=== PATIENT | female | born 1955 | race Caucasian/White ===

== ENCOUNTER 2021-01-26 01:34 | Inpatient (IN) ==
[2021-01-26] MEDS ORDERED: PANTOPRAZOLE INJ 80 MG in SODIUM CHLORIDE 0.9% 100 ML IV ONE (02:04)
[2021-01-26] MEDS ORDERED: THIAMINE INJ 100 MG, FOLIC ACID INJ 1 MG, MAGNESIUM SULF INJ 2 GM, MULTIVITAMIN INJ 10 ... IV ONE (02:04)
[2021-01-26] MEDS ORDERED: ONDANSETRON 4 MG/2 ML VIAL IV ONE (02:04)
[2021-01-26] MEDS ORDERED: MORPHINE 2 MG/1 ML SYRINGE IV STA (02:06)
[2021-01-26 02:28] LABS: Basophils # 0.1 10*3/uL (0.0-0.2); Basophils % 1.2 % (0.0-0.8); Eosinophils # 0.1 10*3/uL (0.0-0.87); Eosinophils % 1.2 % (0.00-10.9); Hematocrit 22.3 VOL% (35.7-47.0); Hemoglobin 8.3 GM/DL (12.0-16.0); Immature Granulocytes % 1.4 %; Immature Granulocytes Absolute 0.12 #; Lymphocytes # 2.4 10*3/uL (1.4-4.0); Lymphocytes % 28.3 % (21.3-54.2); Mean Corpuscular HGB Conc 37.2 GM/DL (32-36); Mean Corpuscular Volume 91.4 FL (87-102); Monocytes % 17.1 % (1.7-12.7); NRBC # 0.02 10*3/uL; Neutrophils % 50.8 % (38.7-73.9); Platelet Count 53 T/CUMM (130-400); Red Blood Count 2.44 MC/CUMM (3.8-5.5); Red Cell Distribution Width 17.2 % (9.3-17.3); White Blood Count 8.4 T/CUMM (4-12)
[2021-01-26 03:02] LABS: Eosinophils 1 % (0-10); Lymphocytes 22 % (20-55); Platelet Estimate Decreased; Segmented Neutrophils 67 % (50-85); Total Cells Counted 100
[2021-01-26 03:03] LABS: Target Cells 2+
[2021-01-26 03:04] LABS: Microcytosis Slight
[2021-01-26] MEDS ORDERED: PANTOPRAZOLE 40 MG VIAL IV ONE (03:04)
[2021-01-26 03:05] LABS: Anisocytosis 1+; Polychromasia Few
[2021-01-26 03:15] LABS: Albumin 2.3 G/DL (3.4-5.0); Calcium 8.5 MG/DL (8.5-10.1); Osmolality,Calculated 259.5 MOS/KG (273-304); Total Protein 8.4 G/DL (6.4-8.2)
[2021-01-26 03:16] LABS: Potassium 5.2 MMOL/L (3.5-5.1)
[2021-01-26] MEDS: PANTOPRAZOLE INJ 200 MG in SODIUM CHLORIDE 0.9% 250 ML IV SCH (04:40)
[2021-01-26] MEDS ORDERED: ONDANSETRON 4 MG/2 ML VIAL IV PRN (05:38)
[2021-01-26] MEDS ORDERED: LORazepam 2 MG/1 ML VIAL IV PRN (05:43)
[2021-01-26] MEDS ORDERED: MORPHINE 2 MG/1 ML SYRINGE IV PRN (06:02)
[2021-01-26] MEDS ORDERED: SODIUM CHLORIDE 0.9% 1,000 ML IV SCH (06:30)
[2021-01-26 08:38] LABS: Basophils # 0.1 10*3/uL (0.0-0.2); Basophils % 1.2 % (0.0-0.8); Eosinophils # 0.1 10*3/uL (0.0-0.87); Eosinophils % 1.5 % (0.00-10.9); Hematocrit 18.8 VOL% (35.7-47.0); Hemoglobin 7.1 GM/DL (12.0-16.0); Lymphocytes # 2.2 10*3/uL (1.4-4.0); Lymphocytes % 32.4 % (21.3-54.2); Mean Corpuscular HGB Conc 37.8 GM/DL (32-36); Mean Corpuscular Volume 90.8 FL (87-102); Mean Platelet Volume 11.3 FL (9.6-12.0); Monocytes % 17.6 % (1.7-12.7); Neutrophils % 46.9 % (38.7-73.9); Platelet Count 54 T/CUMM (130-400); Red Blood Count 2.07 MC/CUMM (3.8-5.5); Red Cell Distribution Width 16.6 % (9.3-17.3); White Blood Count 6.8 T/CUMM (4-12)
[2021-01-26 08:49] LABS: INR 1.5
[2021-01-26 09:04] LABS: Anisocytosis 3+; Band Neutrophils 5 % (0-10); Eosinophils 3 % (0-10); Lymphocytes 32 % (20-55); Macrocytosis 2+; Nucleated Red Blood Cells 1 (0-5); Platelet Estimate Decreased; Segmented Neutrophils 45 % (50-85); Target Cells 2+; Total Cells Counted 100
[2021-01-26 09:05] LABS: Pappenheimer Bodies Few; Polychromasia Slight
[2021-01-26 09:06] LABS: Hypochromasia Slight
[2021-01-26 09:10] LABS: % Iron Saturation 78.3 % (18-50); Ferritin 516.8 ng/mL (8-252)
[2021-01-26] MEDS ORDERED: THIAMINE INJ 100 MG, FOLIC ACID INJ 1 MG, MULTIVITAMIN INJ 10 ML in SODIUM CHLORIDE 0.9... IV SCH (09:41)
[2021-01-26] MEDS ORDERED: SODIUM CHLORIDE 0.9% 1,000 ML IV PRN (10:03)
[2021-01-26 10:04] LABS: Potassium 2.9 MMOL/L (3.5-5.1)
[2021-01-26] MEDS ORDERED: SODIUM CHLORIDE 0.9% 1,000 ML IV ONE (12:00)
[2021-01-26] MEDS ORDERED: MAGNESIUM SULF RIDER 2 GM/50 ML PREMIX IV ONE (13:39)
[2021-01-26] MEDS ORDERED: POTASSIUM CHLORIDE 20 MEQ TABLET PO ONE (13:40)
[2021-01-26 15:09] LABS: INR 1.4; PT Patient Result 15.4 SECS (10.5-12.0)
[2021-01-26 15:40] LABS: Hepatitis B Core IgM Quant 0.08 Index; Hepatitis B Surface Ag Quant < 0.10 Index; Hepatitis B Surface Ag Result Non-Reactive (NonReactive); Hepatitis C Virus Ab Quant 0.15 Index; Hepatitis C Virus Ab Result Non-Reactive (NonReactive)
[2021-01-26] MEDS ORDERED: ACETAMINOPHEN 325 MG TABLET PO PRN (18:46)
[2021-01-27 01:34] LABS: Hematocrit 22.6 VOL% (35.7-47.0); Hemoglobin 8.4 GM/DL (12.0-16.0)
[2021-01-27 06:18] LABS: Basophils # 0.1 10*3/uL (0.0-0.2); Eosinophils # 0.1 10*3/uL (0.0-0.87); Eosinophils % 1.5 % (0.00-10.9); Hematocrit 26.4 VOL% (35.7-47.0); Hemoglobin 9.7 GM/DL (12.0-16.0); Immature Granulocytes % 0.5 %; Immature Granulocytes Absolute 0.03 #; Lymphocytes # 1.5 10*3/uL (1.4-4.0); Lymphocytes % 24.2 % (21.3-54.2); Mean Corpuscular HGB Conc 36.7 GM/DL (32-36); Mean Corpuscular Volume 89.5 FL (87-102); Mean Platelet Volume 10.9 FL (9.6-12.0); Monocytes % 16.5 % (1.7-12.7); NRBC # 0.02 10*3/uL; Neutrophils % 56.3 % (38.7-73.9); Platelet Count 45 T/CUMM (130-400); Red Blood Count 2.95 MC/CUMM (3.8-5.5); Red Cell Distribution Width 15.9 % (9.3-17.3)
[2021-01-27 06:45] LABS: Albumin 2.1 G/DL (3.4-5.0); Bilirubin,Total 4.5 MG/DL (0.20-1.00); Osmolality,Calculated 270.8 MOS/KG (273-304); Potassium 3.1 MMOL/L (3.5-5.1); Total Protein 7.5 G/DL (6.4-8.2)
[2021-01-27 06:48] LABS: Eosinophils 1 % (0-10); Hypochromasia 1+; Lymphocytes 19 % (20-55); Platelet Estimate Decreased; Segmented Neutrophils 64 % (50-85); Target Cells Few; Total Cells Counted 100
[2021-01-27 06:49] LABS: Microcytosis Slight
[2021-01-27] MEDS: PANTOPRAZOLE INJ 200 MG in SODIUM CHLORIDE 0.9% 250 ML IV SCH ×2 (07:21→07:24)
[2021-01-27] MEDS ORDERED: LIDOCAINE 2% 5 ML VIAL ONE (11:47)
[2021-01-27] MEDS ORDERED: propofoL 200 MG/20 ML VIAL IV ONE (11:47)
[2021-01-27] MEDS ORDERED: SODIUM CHLORIDE 0.9% 500 ML IV SCH (12:00)
[2021-01-27] MEDS ORDERED: BISACODYL 5 MG TABLET PO ONE (15:00)
[2021-01-27] MEDS: 1: SODIUM CHLORIDE 0.9% 1,000 ML 2: THIAMINE INJ 100 MG, FOLIC ACID INJ 1 MG, MULTIVITA IV SCH (16:39)
[2021-01-27] MEDS ORDERED: POTASSIUM CHLORIDE 20 MEQ TABLET PO ONE (17:00)
[2021-01-27] MEDS ORDERED: POLYETHYLENE GLYCOL POWDER 255 GM BOTTLE PO ONE (18:00)
[2021-01-28] MEDS: PANTOPRAZOLE INJ 200 MG in SODIUM CHLORIDE 0.9% 250 ML IV SCH (03:18)
[2021-01-28] MEDS: 1: SODIUM CHLORIDE 0.9% 1,000 ML 2: THIAMINE INJ 100 MG, FOLIC ACID INJ 1 MG, MULTIVITA IV SCH ×6 (03:18→23:22)
[2021-01-28 05:21] LABS: Basophils # 0.1 10*3/uL (0.0-0.2); Basophils % 0.7 % (0.0-0.8); Eosinophils # 0.1 10*3/uL (0.0-0.87); Eosinophils % 1.5 % (0.00-10.9); Hematocrit 26.2 VOL% (35.7-47.0); Hemoglobin 9.6 GM/DL (12.0-16.0); Immature Granulocytes % 0.3 %; Immature Granulocytes Absolute 0.02 #; Lymphocytes # 1.4 10*3/uL (1.4-4.0); Lymphocytes % 21.1 % (21.3-54.2); Mean Corpuscular HGB Conc 36.6 GM/DL (32-36); Mean Corpuscular Volume 89.4 FL (87-102); Mean Platelet Volume 10.5 FL (9.6-12.0); Monocytes % 17.4 % (1.7-12.7); Platelet Count 44 T/CUMM (130-400); Red Blood Count 2.93 MC/CUMM (3.8-5.5); Red Cell Distribution Width 16.5 % (9.3-17.3); White Blood Count 6.7 T/CUMM (4-12)
[2021-01-28 05:49] LABS: Bilirubin,Total 4.3 MG/DL (0.20-1.00); Osmolality,Calculated 279.3 MOS/KG (273-304); Potassium 2.7 MMOL/L (3.5-5.1); Total Protein 7.1 G/DL (6.4-8.2)
[2021-01-28 05:53] LABS: Band Neutrophils 1 % (0-10); Eosinophils 1 % (0-10); Lymphocytes 11 % (20-55); Platelet Estimate Decreased; Segmented Neutrophils 75 % (50-85); Total Cells Counted 100
[2021-01-28] MEDS: POTASSIUM CHLORIDE RIDER 10 MEQ/100 ML PREMIX IV SCH ×3 (10:01→13:00)
[2021-01-28] MEDS ORDERED: propofoL 200 MG/20 ML VIAL IV ONE ×2 (12:41→13:00)
[2021-01-28] MEDS ORDERED: LIDOCAINE 2% 5 ML VIAL ONE (12:41)
[2021-01-28] MEDS ORDERED: PHENYLEPHRINE 1 MG/10 ML SYRINGE IV ONE (12:49)
[2021-01-29 01:45] LABS: Basophils # 0.1 10*3/uL (0.0-0.2); Eosinophils # 0.2 10*3/uL (0.0-0.87); Eosinophils % 2.9 % (0.00-10.9); Hematocrit 25.6 VOL% (35.7-47.0); Hemoglobin 9.4 GM/DL (12.0-16.0); Immature Granulocytes % 0.2 %; Immature Granulocytes Absolute 0.01 #; Lymphocytes # 1.4 10*3/uL (1.4-4.0); Lymphocytes % 28.2 % (21.3-54.2); Mean Corpuscular HGB Conc 36.7 GM/DL (32-36); Mean Corpuscular Volume 90.1 FL (87-102); Mean Platelet Volume 10.9 FL (9.6-12.0); Neutrophils % 49.7 % (38.7-73.9); Platelet Count 48 T/CUMM (130-400); Red Blood Count 2.84 MC/CUMM (3.8-5.5); Red Cell Distribution Width 16.8 % (9.3-17.3); White Blood Count 5.1 T/CUMM (4-12)
[2021-01-29 02:05] LABS: Calcium 7.8 MG/DL (8.5-10.1); Osmolality,Calculated 272.7 MOS/KG (273-304); Potassium 2.7 MMOL/L (3.5-5.1)
[2021-01-29] MEDS: MEROPENEM 500 MG in SODIUM CHLORIDE 0.9% 100 ML IV SCH ×2 (02:30→09:53)
[2021-01-29] MEDS: VANCOMYCIN INJ 1,000 MG in SODIUM CHLORIDE 0.9% 250 ML IV SCH ×2 (03:11→17:43)
[2021-01-29] MEDS ORDERED: POTASSIUM CHLORIDE 20 MEQ TABLET PO PRN (03:23)
[2021-01-29 03:29] LABS: Eosinophils 4 % (0-10); Lymphocytes 21 % (20-55); Platelet Estimate Decreased; Segmented Neutrophils 66 % (50-85); Total Cells Counted 100
[2021-01-29 03:33] LABS: Microcytosis Slight; Target Cells 3+
[2021-01-29 03:34] LABS: Anisocytosis 1+; Polychromasia Slight
[2021-01-29 03:51] LABS: Antinuclear Ab, S 0.3 U
[2021-01-29] MEDS: 1: SODIUM CHLORIDE 0.9% 1,000 ML 2: THIAMINE INJ 100 MG, FOLIC ACID INJ 1 MG, MULTIVITA IV SCH (04:00)
[2021-01-29] MEDS: POTASSIUM CHLORIDE RIDER 10 MEQ/100 ML PREMIX IV PRN ×5 (04:52→13:52)
[2021-01-29] MEDS ORDERED: SODIUM CHLORIDE 0.9% 1,000 ML IV SCH (10:30)
[2021-01-29 13:20] LABS: Mitochondrial Antibody (M2) <0.1 U
[2021-01-29] MEDS ORDERED: FUROSEMIDE 40 MG/4 ML VIAL IV ONE (14:00)
[2021-01-29] MEDS ORDERED: MAGNESIUM SULF RIDER 2 GM/50 ML PREMIX IV ONE (15:00)
[2021-01-29] MEDS ORDERED: POTASSIUM CHLORIDE 20 MEQ TABLET PO ONE (15:00)
[2021-01-29] MEDS: CEFEPIME 1,000 MG in SODIUM CHLORIDE 0.9% 100 ML IV SCH ×2 (16:20→21:00)
[2021-01-29] MEDS: FUROSEMIDE 40 MG/4 ML VIAL IV SCH (16:51)
[2021-01-29] MEDS: POTASSIUM CHLORIDE 20 MEQ TABLET PO SCH (21:00)
[2021-01-29] MEDS: PANTOPRAZOLE 40 MG TABLET PO SCH (21:00)
[2021-01-30] MEDS: CEFEPIME 1,000 MG in SODIUM CHLORIDE 0.9% 100 ML IV SCH ×2 (03:47→09:36)
[2021-01-30] MEDS: VANCOMYCIN INJ 1,000 MG in SODIUM CHLORIDE 0.9% 250 ML IV SCH (03:47)
[2021-01-30 06:39] LABS: Basophils # 0.1 10*3/uL (0.0-0.2); Basophils % 1.2 % (0.0-0.8); Eosinophils # 0.3 10*3/uL (0.0-0.87); Eosinophils % 4.4 % (0.00-10.9); Hematocrit 26.5 VOL% (35.7-47.0); Hemoglobin 9.8 GM/DL (12.0-16.0); Immature Granulocytes % 0.7 %; Immature Granulocytes Absolute 0.04 #; Lymphocytes # 2.2 10*3/uL (1.4-4.0); Lymphocytes % 35.7 % (21.3-54.2); Mean Corpuscular Volume 89.5 FL (87-102); Mean Platelet Volume 10.9 FL (9.6-12.0); Monocytes % 19.1 % (1.7-12.7); Neutrophils % 38.9 % (38.7-73.9); Red Blood Count 2.96 MC/CUMM (3.8-5.5); Red Cell Distribution Width 17.2 % (9.3-17.3); White Blood Count 6.1 T/CUMM (4-12)
[2021-01-30 06:42] LABS: Platelet Count 61 T/CUMM (130-400)
[2021-01-30 07:01] LABS: Calcium 8.1 MG/DL (8.5-10.1); Osmolality,Calculated 277.3 MOS/KG (273-304); Potassium 3.7 MMOL/L (3.5-5.1)
[2021-01-30 07:05] LABS: Eosinophils 1 % (0-10); Hypochromasia 1+; Lymphocytes 32 % (20-55); Platelet Estimate Decreased; Segmented Neutrophils 60 % (50-85); Target Cells Few; Total Cells Counted 100
[2021-01-30 07:06] LABS: Microcytosis Slight
[2021-01-30 07:47] VITALS: BP 129/63
[2021-01-30] MEDS ORDERED: FOLIC ACID 1 MG TABLET PO SCH (09:00)
[2021-01-30] MEDS ORDERED: MULTIVITAMIN (CENTRUM) TABLET PO SCH (09:00)
[2021-01-30] MEDS ORDERED: POTASSIUM CHLORIDE 20 MEQ TABLET PO SCH (09:00)
[2021-01-30] MEDS ORDERED: THIAMINE 100 MG TABLET PO SCH (09:00)
[2021-01-30] MEDS: POTASSIUM CHLORIDE 20 MEQ TABLET PO SCH (09:39)
[2021-01-30] MEDS: PANTOPRAZOLE 40 MG TABLET PO SCH (09:39)
[2021-01-30] MEDS: FUROSEMIDE 40 MG/4 ML VIAL IV SCH (09:39)
[2021-01-30] MEDS ORDERED: MAGNESIUM SULF RIDER 2 GM/50 ML PREMIX IV ONE (15:00)
[2021-01-30] MEDS ORDERED: MAGNESIUM OXIDE 400 MG TABLET PO ONE (15:00)
[2021-01-30] MEDS ORDERED: CEFDINIR 300 MG CAPSULE PO SCH (21:00)
== END 2021-01-30 14:41 | disposition home or self-care (01) | DRG 377 ==
LOC: SUATTDRO → N.ED 01:34 → N.EDINP 05:38 → N.5E 08:09
PROVIDERS: ADMIT Internal Medicine; ATTEND Internal Medicine

== ENCOUNTER 2022-01-26 13:15 | Inpatient (IN) ==
[2022-01-26] MEDS ORDERED: FUROSEMIDE 40 MG/4 ML VIAL IV STA ×2 (13:36→14:45)
[2022-01-26 14:12] LABS: Basophils # 0.1 10*3/uL (0.0-0.2); Basophils % 1.4 % (0.0-0.8); Eosinophils # 0.1 10*3/uL (0.0-0.87); Eosinophils % 1.6 % (0.00-10.9); Immature Granulocytes % 0.4 %; Immature Granulocytes Absolute 0.02 #; Lymphocytes # 1.9 10*3/uL (1.4-4.0); Lymphocytes % 38.6 % (21.3-54.2); Mean Corpuscular HGB Conc 34.4 GM/DL (32-36); Mean Corpuscular Volume 98.4 FL (87-102); Mean Platelet Volume 11.2 FL (9.6-12.0); Monocytes # 0.7 10*3/uL (0.11-0.8); Monocytes % 14.2 % (1.7-12.7); Neutrophils % 43.8 % (38.7-73.9); Platelet Count 68 T/CUMM (130-400); Red Blood Count 1.83 MC/CUMM (3.8-5.5); Red Cell Distribution Width 18.6 % (9.3-17.3); White Blood Count 4.9 T/CUMM (4-12)
[2022-01-26 14:14] LABS: Hemoglobin 6.2 GM/DL (12.0-16.0)
[2022-01-26 14:24] LABS: Bacteria,Urine Occasional /HPF (Few); Hyaline Casts,Urine 3 /LPF (0-3); Mucus,Urine Occasional /LPF (Occasional); RBC,Urine 1 /HPF (0-4); Squamous Epithelial Cell,Urine Occasional /HPF (0-10); Urine Appearance Clear (Clear); Urine Color Yellow (Yellow)
[2022-01-26 14:25] LABS: Bilirubin,Urine Small mg/dL (Negative); Blood, Urine Trace mg/dL (Negative); Glucose,Urine (UA) Negative (Negative); Ketones,Urine Negative (Negative); Nitrite,Urine Negative (Negative); Protein,Urine Negative (Negative); Urine Specific Gravity 1.015 (1.001-1.035)
[2022-01-26 14:30] LABS: Albumin 1.6 G/DL (3.4-5.0); Bilirubin,Total 4.8 MG/DL (0.20-1.00); Calcium 8.6 MG/DL (8.5-10.1); Osmolality,Calculated 276.4 MOS/KG (273-304); Potassium 3.4 MMOL/L (3.5-5.1); Total Protein 9.2 G/DL (6.4-8.2)
[2022-01-26] MEDS ORDERED: SODIUM CHLORIDE 0.9% 1,000 ML IV PRN (14:44)
[2022-01-26] MEDS ORDERED: THIAMINE INJ 100 MG, FOLIC ACID INJ 1 MG, MAGNESIUM SULF INJ 2 GM, MULTIVITAMIN INJ 10 ... IV ONE (14:49)
[2022-01-26 15:02] LABS: % Iron Saturation 98.2 % (18-50); Ferritin 831.9 ng/mL (8-252)
[2022-01-26] MEDS ORDERED: GLUCAGON 1 MG VIAL IM PRN (15:38)
[2022-01-26] MEDS ORDERED: hydrALAZINE 20 MG/1 ML VIAL IV PRN (15:38)
[2022-01-26] MEDS ORDERED: ONDANSETRON 4 MG/2 ML VIAL IV PRN (15:38)
[2022-01-26] MEDS ORDERED: MORPHINE 2 MG/1 ML SYRINGE IV PRN (15:38)
[2022-01-26] MEDS ORDERED: DEXTROSE 10% 250 ML BAG IV PRN (15:38)
[2022-01-26] MEDS ORDERED: LORazepam 2 MG/1 ML VIAL IV PRN (15:50)
[2022-01-26] MEDS ORDERED: chlordiazePOXIDE 25 MG CAPSULE PO PRN (15:50)
[2022-01-26] MEDS ORDERED: POTASSIUM CHLORIDE 20 MEQ TABLET PO ONE (15:53)
[2022-01-26 18:19] LABS: Partial Thromboplastin Time 35.7 SECS (23.7-32.9)
[2022-01-26 18:20] LABS: INR 1.9; PT Patient Result 19.8 SECS (10.1-12.1)
[2022-01-26 18:34] LABS: Folate 3.02 NG/ML (5.38-24.0)
[2022-01-26] MEDS: cefTRIAXone 1,000 MG in SODIUM CHLORIDE 0.9% 100 ML IV SCH (19:15)
[2022-01-26] MEDS: ALBUTEROL/IPRATROPIUM 3 ML NEB RESP TX SCH (19:16)
[2022-01-26] MEDS: LACTULOSE 20 GM/30 ML UDCUP PO SCH (20:37)
[2022-01-26] MEDS: AZITHROMYCIN INJ 500 MG in SODIUM CHLORIDE 0.9% 250 ML IV SCH (20:38)
[2022-01-27] MEDS: ALBUTEROL/IPRATROPIUM 3 ML NEB RESP TX SCH ×4 (00:14→20:10)
[2022-01-27 05:08] LABS: Basophils # 0.1 10*3/uL (0.0-0.2); Eosinophils # 0.1 10*3/uL (0.0-0.87); Hematocrit 22.9 VOL% (35.7-47.0); Hemoglobin 8.2 GM/DL (12.0-16.0); Immature Granulocytes % 0.3 %; Immature Granulocytes Absolute 0.02 #; Lymphocytes % 32.8 % (21.3-54.2); Mean Corpuscular HGB Conc 35.8 GM/DL (32-36); Mean Corpuscular Volume 91.2 FL (87-102); Mean Platelet Volume 11.1 FL (9.6-12.0); Monocytes % 16.7 % (1.7-12.7); NRBC # 0.02 10*3/uL; Neutrophils % 48.2 % (38.7-73.9); Platelet Count 50 T/CUMM (130-400); Red Blood Count 2.51 MC/CUMM (3.8-5.5); Red Cell Distribution Width 16.8 % (9.3-17.3); White Blood Count 6.1 T/CUMM (4-12)
[2022-01-27 05:25] LABS: INR 2.9; PT Patient Result 20.9 SECS (10.1-12.1)
[2022-01-27 05:26] LABS: Albumin 1.6 G/DL (3.4-5.0); Calcium 8.7 MG/DL (8.5-10.1); Osmolality,Calculated 277.3 MOS/KG (273-304); Potassium 3.2 MMOL/L (3.5-5.1); Total Protein 8.4 G/DL (6.4-8.2)
[2022-01-27 05:33] LABS: Eosinophils 3 % (0-10); Hypochromia 1+; Lymphocytes 34 % (20-55); Nucleated Red Blood Cells 1 /100 WBC (0-5); Target Cells 1+; Total Cells Counted 100
[2022-01-27 05:34] LABS: Anisocytosis 1+; Macrocytosis 1+; Platelet Estimate Decreased
[2022-01-27] MEDS ORDERED: MAGNESIUM SULF RIDER 4 GM/100 ML PREMIX IV ONE (08:00)
[2022-01-27] MEDS: MULTIVITAMIN (CENTRUM) TABLET PO SCH (09:00)
[2022-01-27] MEDS: FOLIC ACID 1 MG TABLET PO SCH (09:00)
[2022-01-27] MEDS ORDERED: POTASSIUM CHLORIDE 20 MEQ TABLET PO ONE (09:00)
[2022-01-27] MEDS: LACTULOSE 20 GM/30 ML UDCUP PO SCH ×3 (09:00→21:08)
[2022-01-27] MEDS: THIAMINE 100 MG TABLET PO SCH (09:00)
[2022-01-27] MEDS ORDERED: PHYTONADIONE 10 MG/1 ML AMP SUBCUT ONE (13:00)
[2022-01-27] MEDS: SPIRONOLACTONE 25 MG TABLET PO SCH (13:27)
[2022-01-27] MEDS: ALBUMIN 25% 25 GM/100 ML VIAL IV SCH (15:29)
[2022-01-27] MEDS: cefTRIAXone 1,000 MG in SODIUM CHLORIDE 0.9% 100 ML IV SCH (16:32)
[2022-01-27] MEDS: FUROSEMIDE 40 MG/4 ML VIAL IV SCH (16:33)
[2022-01-27] MEDS: AZITHROMYCIN INJ 500 MG in SODIUM CHLORIDE 0.9% 250 ML IV SCH (20:52)
[2022-01-27] MEDS: traMADol 50 MG TABLET PO PRN (21:00)
[2022-01-28] MEDS: ALBUTEROL/IPRATROPIUM 3 ML NEB RESP TX SCH ×5 (00:07→20:13)
[2022-01-28 05:11] LABS: Basophils % 0.7 % (0.0-0.8); Eosinophils # 0.1 10*3/uL (0.0-0.87); Eosinophils % 2.3 % (0.00-10.9); Hematocrit 21.8 VOL% (35.7-47.0); Hemoglobin 7.6 GM/DL (12.0-16.0); Immature Granulocytes % 0.3 %; Immature Granulocytes Absolute 0.02 #; Lymphocytes # 2.4 10*3/uL (1.4-4.0); Lymphocytes % 40.9 % (21.3-54.2); Mean Corpuscular HGB Conc 34.9 GM/DL (32-36); Mean Corpuscular Volume 92.8 FL (87-102); Mean Platelet Volume 11.3 FL (9.6-12.0); Monocytes # 0.9 10*3/uL (0.11-0.8); Monocytes % 15.3 % (1.7-12.7); NRBC # 0.02 10*3/uL; Neutrophils % 40.5 % (38.7-73.9); Platelet Count 50 T/CUMM (130-400); Red Blood Count 2.35 MC/CUMM (3.8-5.5); Red Cell Distribution Width 18.1 % (9.3-17.3); White Blood Count 5.7 T/CUMM (4-12)
[2022-01-28 05:23] LABS: Calcium 8.4 MG/DL (8.5-10.1); Osmolality,Calculated 279.1 MOS/KG (273-304); Potassium 3.2 MMOL/L (3.5-5.1)
[2022-01-28 05:39] LABS: Eosinophils 9 % (0-10); Lymphocytes 29 % (20-55); Nucleated Red Blood Cells 1 /100 WBC (0-5); Platelet Estimate Decreased; Total Cells Counted 100
[2022-01-28 05:40] LABS: Hypochromia Slight; Macrocytosis Slight; Target Cells Few
[2022-01-28 07:22] LABS: PT Patient Result 22.9 SECS (10.1-12.1)
[2022-01-28 07:23] LABS: INR 2.2
[2022-01-28] MEDS ORDERED: LACTATED RINGERS 1,000 ML IV SCH (08:00)
[2022-01-28] MEDS: FUROSEMIDE 40 MG/4 ML VIAL IV SCH ×2 (08:21→16:25)
[2022-01-28] MEDS: ALBUMIN 25% 25 GM/100 ML VIAL IV SCH (08:21)
[2022-01-28] MEDS ORDERED: POTASSIUM CHLORIDE 20 MEQ TABLET PO ONE (09:30)
[2022-01-28] MEDS ORDERED: MAGNESIUM SULF RIDER 2 GM/50 ML PREMIX IV ONE (12:00)
[2022-01-28] MEDS ORDERED: PHYTONADIONE 10 MG/1 ML AMP SUBCUT ONE (12:30)
[2022-01-28] MEDS: SPIRONOLACTONE 25 MG TABLET PO SCH (13:51)
[2022-01-28] MEDS: FOLIC ACID 1 MG TABLET PO SCH (13:51)
[2022-01-28] MEDS: PANTOPRAZOLE 40 MG TABLET PO SCH (13:51)
[2022-01-28] MEDS: MULTIVITAMIN (CENTRUM) TABLET PO SCH (13:51)
[2022-01-28] MEDS: THIAMINE 100 MG TABLET PO SCH (13:51)
[2022-01-28] MEDS: LACTULOSE 20 GM/30 ML UDCUP PO SCH ×2 (13:52→20:54)
[2022-01-28] MEDS: traMADol 50 MG TABLET PO PRN (13:52)
[2022-01-28] MEDS: cefTRIAXone 1,000 MG in SODIUM CHLORIDE 0.9% 100 ML IV SCH (16:25)
[2022-01-28] MEDS: AZITHROMYCIN INJ 500 MG in SODIUM CHLORIDE 0.9% 250 ML IV SCH (20:54)
[2022-01-29] MEDS: ALBUTEROL/IPRATROPIUM 3 ML NEB RESP TX SCH ×2 (01:25→07:05)
[2022-01-29 06:13] LABS: Basophils # 0.1 10*3/uL (0.0-0.2); Basophils % 1.1 % (0.0-0.8); Eosinophils # 0.2 10*3/uL (0.0-0.87); Hematocrit 23.4 VOL% (35.7-47.0); Immature Granulocytes % 0.4 %; Immature Granulocytes Absolute 0.02 #; Lymphocytes % 36.1 % (21.3-54.2); Mean Corpuscular HGB Conc 34.2 GM/DL (32-36); Mean Corpuscular Volume 95.1 FL (87-102); Mean Platelet Volume 9.5 FL (9.6-12.0); Monocytes # 0.9 10*3/uL (0.11-0.8); Monocytes % 16.5 % (1.7-12.7); NRBC # 0.02 10*3/uL; Neutrophils % 42.9 % (38.7-73.9); Platelet Count 51 T/CUMM (130-400); Red Blood Count 2.46 MC/CUMM (3.8-5.5); Red Cell Distribution Width 18.7 % (9.3-17.3); White Blood Count 5.6 T/CUMM (4-12)
[2022-01-29 06:44] LABS: Eosinophils 8 % (0-10); Hypochromia 1+; Lymphocytes 25 % (20-55); Microcytosis 1+; Platelet Estimate Decreased; Total Cells Counted 100
[2022-01-29 06:51] LABS: INR 2.2; PT Patient Result 22.4 SECS (10.1-12.1)
[2022-01-29 06:53] LABS: Calcium 8.9 MG/DL (8.5-10.1); Osmolality,Calculated 277.3 MOS/KG (273-304); Potassium 3.4 MMOL/L (3.5-5.1)
[2022-01-29] MEDS: FOLIC ACID 1 MG TABLET PO SCH (08:28)
[2022-01-29] MEDS: LACTULOSE 20 GM/30 ML UDCUP PO SCH ×2 (08:28→20:58)
[2022-01-29] MEDS: FUROSEMIDE 40 MG/4 ML VIAL IV SCH ×2 (08:28→15:06)
[2022-01-29] MEDS: MULTIVITAMIN (CENTRUM) TABLET PO SCH (08:29)
[2022-01-29] MEDS: PANTOPRAZOLE 40 MG TABLET PO SCH (08:29)
[2022-01-29] MEDS: THIAMINE 100 MG TABLET PO SCH (08:29)
[2022-01-29] MEDS: SPIRONOLACTONE 25 MG TABLET PO SCH (08:29)
[2022-01-29] MEDS ORDERED: POTASSIUM CHLORIDE 20 MEQ TABLET PO ONE (08:30)
[2022-01-29] MEDS ORDERED: SODIUM CHLORIDE 0.9% 1,000 ML IV PRN (09:19)
[2022-01-29] MEDS ORDERED: MAGNESIUM SULF RIDER 2 GM/50 ML PREMIX IV ONE (09:30)
[2022-01-29] MEDS: ALBUMIN 25% 25 GM/100 ML VIAL IV SCH (15:05)
[2022-01-29] MEDS: cefTRIAXone 1,000 MG in SODIUM CHLORIDE 0.9% 100 ML IV SCH (15:08)
[2022-01-29 17:12] LABS: INR 1.6
[2022-01-29] MEDS: AZITHROMYCIN INJ 500 MG in SODIUM CHLORIDE 0.9% 250 ML IV SCH (20:56)
[2022-01-30 06:02] LABS: Basophils % 0.9 % (0.0-0.8); Eosinophils # 0.1 10*3/uL (0.0-0.87); Eosinophils % 2.9 % (0.00-10.9); Hematocrit 20.2 VOL% (35.7-47.0); Hemoglobin 6.9 GM/DL (12.0-16.0); Immature Granulocytes % 0.4 %; Immature Granulocytes Absolute 0.02 #; Lymphocytes # 1.8 10*3/uL (1.4-4.0); Lymphocytes % 39.4 % (21.3-54.2); Mean Corpuscular HGB Conc 34.2 GM/DL (32-36); Mean Corpuscular Volume 97.1 FL (87-102); Mean Platelet Volume 11.4 FL (9.6-12.0); Monocytes # 0.9 10*3/uL (0.11-0.8); Neutrophils % 37.4 % (38.7-73.9); Platelet Count 47 T/CUMM (130-400); Red Blood Count 2.08 MC/CUMM (3.8-5.5); Red Cell Distribution Width 18.9 % (9.3-17.3); White Blood Count 4.5 T/CUMM (4-12)
[2022-01-30 06:12] LABS: INR 1.7; PT Patient Result 18.2 SECS (10.1-12.1)
[2022-01-30 06:20] LABS: Bilirubin,Total 4.7 MG/DL (0.20-1.00); Calcium 8.9 MG/DL (8.5-10.1); Osmolality,Calculated 274.5 MOS/KG (273-304); Potassium 2.9 MMOL/L (3.5-5.1); Total Protein 7.3 G/DL (6.4-8.2)
[2022-01-30 06:28] LABS: Eosinophils 2 % (0-10); Lymphocytes 38 % (20-55); Total Cells Counted 100
[2022-01-30 06:29] LABS: Hypochromia 1+; Macrocytosis 1+; Target Cells Few
[2022-01-30 06:30] LABS: Anisocytosis 1+; Platelet Estimate Decreased; Polychromasia Slight
[2022-01-30] MEDS ORDERED: POTASSIUM CHLORIDE 20 MEQ TABLET PO ONE (08:30)
[2022-01-30] MEDS: FUROSEMIDE 40 MG/4 ML VIAL IV SCH ×2 (08:54→19:14)
[2022-01-30] MEDS ORDERED: SODIUM CHLORIDE 0.9% 1,000 ML IV PRN (09:13)
[2022-01-30] MEDS ORDERED: MAGNESIUM SULF RIDER 4 GM/100 ML PREMIX IV PRN (09:19)
[2022-01-30] MEDS ORDERED: MAGNESIUM SULF RIDER 2 GM/50 ML PREMIX IV PRN (09:19)
[2022-01-30] MEDS ORDERED: FUROSEMIDE 20 MG/2 ML VIAL IV ONE (09:30)
[2022-01-30] MEDS: LACTULOSE 20 GM/30 ML UDCUP PO SCH ×2 (19:04→21:32)
[2022-01-30] MEDS: MULTIVITAMIN (CENTRUM) TABLET PO SCH (19:04)
[2022-01-30] MEDS: PANTOPRAZOLE 40 MG TABLET PO SCH (19:04)
[2022-01-30] MEDS: SPIRONOLACTONE 25 MG TABLET PO SCH (19:04)
[2022-01-30] MEDS: FOLIC ACID 1 MG TABLET PO SCH (19:04)
[2022-01-30] MEDS: THIAMINE 100 MG TABLET PO SCH (19:05)
[2022-01-30] MEDS: AZITHROMYCIN INJ 500 MG in SODIUM CHLORIDE 0.9% 250 ML IV SCH (21:32)
[2022-01-30] MEDS: cefTRIAXone 1,000 MG in SODIUM CHLORIDE 0.9% 100 ML IV SCH (21:50)
[2022-01-30] MEDS: ALBUMIN 25% 25 GM/100 ML VIAL IV SCH (22:10)
[2022-01-30 23:47] LABS: Hematocrit 30.1 VOL% (35.7-47.0)
[2022-01-30 23:49] LABS: Hemoglobin 10.5 GM/DL (12.0-16.0)
[2022-01-31 05:16] LABS: Basophils # 0.1 10*3/uL (0.0-0.2); Basophils % 1.3 % (0.0-0.8); Eosinophils # 0.2 10*3/uL (0.0-0.87); Eosinophils % 3.3 % (0.00-10.9); Hemoglobin 10.1 GM/DL (12.0-16.0); Immature Granulocytes % 0.2 %; Immature Granulocytes Absolute 0.01 #; Lymphocytes % 37.7 % (21.3-54.2); Mean Corpuscular HGB Conc 33.7 GM/DL (32-36); Mean Corpuscular Volume 91.7 FL (87-102); Mean Platelet Volume 10.2 FL (9.6-12.0); Monocytes # 1.1 10*3/uL (0.11-0.8); Neutrophils % 36.5 % (38.7-73.9); Red Blood Count 3.27 MC/CUMM (3.8-5.5); Red Cell Distribution Width 20.6 % (9.3-17.3); White Blood Count 5.2 T/CUMM (4-12)
[2022-01-31 05:18] LABS: Platelet Count 47 T/CUMM (130-400)
[2022-01-31 05:29] LABS: Osmolality,Calculated 272.7 MOS/KG (273-304)
[2022-01-31 05:32] LABS: INR 1.9; PT Patient Result 19.6 SECS (10.1-12.1)
[2022-01-31 07:34] LABS: Eosinophils 4 % (0-10); Hypochromia Slight; Lymphocytes 32 % (20-55); Nucleated Red Blood Cells 1 /100 WBC (0-5); Platelet Estimate Decreased; Total Cells Counted 100
[2022-01-31 07:35] LABS: Macrocytosis Slight; Target Cells Few
[2022-01-31] MEDS ORDERED: POTASSIUM CHLORIDE 20 MEQ TABLET PO ONE (07:40)
[2022-01-31] MEDS: FUROSEMIDE 40 MG/4 ML VIAL IV SCH ×2 (08:55→17:01)
[2022-01-31] MEDS: LACTULOSE 20 GM/30 ML UDCUP PO SCH ×2 (08:55→20:14)
[2022-01-31] MEDS: THIAMINE 100 MG TABLET PO SCH (08:56)
[2022-01-31] MEDS: MULTIVITAMIN (CENTRUM) TABLET PO SCH (08:56)
[2022-01-31] MEDS: FOLIC ACID 1 MG TABLET PO SCH (08:56)
[2022-01-31] MEDS: SPIRONOLACTONE 25 MG TABLET PO SCH (08:56)
[2022-01-31] MEDS: PANTOPRAZOLE 40 MG TABLET PO SCH (08:56)
[2022-01-31] MEDS: POTASSIUM CHLORIDE RIDER 10 MEQ/100 ML PREMIX IV PRN ×5 (12:28→22:59)
[2022-01-31] MEDS ORDERED: LACTULOSE 20 GM/30 ML UDCUP PO ONE (13:14)
[2022-01-31] MEDS: cefTRIAXone 1,000 MG in SODIUM CHLORIDE 0.9% 100 ML IV SCH (17:01)
[2022-02-01 05:22] LABS: Basophils # 0.1 10*3/uL (0.0-0.2); Basophils % 1.2 % (0.0-0.8); Eosinophils # 0.2 10*3/uL (0.0-0.87); Eosinophils % 3.5 % (0.00-10.9); Hematocrit 28.8 VOL% (35.7-47.0); Hemoglobin 9.6 GM/DL (12.0-16.0); Immature Granulocytes % 0.2 %; Immature Granulocytes Absolute 0.01 #; Lymphocytes # 2.3 10*3/uL (1.4-4.0); Lymphocytes % 45.3 % (21.3-54.2); Mean Corpuscular HGB Conc 33.3 GM/DL (32-36); Mean Corpuscular Volume 91.4 FL (87-102); Mean Platelet Volume 9.9 FL (9.6-12.0); Monocytes # 1.2 10*3/uL (0.11-0.8); Monocytes % 23.6 % (1.7-12.7); Neutrophils % 26.2 % (38.7-73.9); Red Blood Count 3.15 MC/CUMM (3.8-5.5); Red Cell Distribution Width 20.4 % (9.3-17.3); White Blood Count 5.2 T/CUMM (4-12)
[2022-02-01 05:29] LABS: Platelet Count 50 T/CUMM (130-400)
[2022-02-01 05:33] LABS: INR 1.8; PT Patient Result 18.8 SECS (10.1-12.1)
[2022-02-01 05:44] LABS: Calcium 8.8 MG/DL (8.5-10.1); Osmolality,Calculated 278.3 MOS/KG (273-304); Potassium 3.5 MMOL/L (3.5-5.1)
[2022-02-01 07:36] LABS: Eosinophils 6 % (0-10); Lymphocytes 39 % (20-55); Total Cells Counted 100
[2022-02-01 07:37] LABS: Hypochromia Slight; Macrocytosis Slight; Platelet Estimate Decreased
[2022-02-01] MEDS: MULTIVITAMIN (CENTRUM) TABLET PO SCH (08:43)
[2022-02-01] MEDS: THIAMINE 100 MG TABLET PO SCH (08:43)
[2022-02-01] MEDS: FUROSEMIDE 40 MG/4 ML VIAL IV SCH ×2 (08:43→16:00)
[2022-02-01] MEDS: PANTOPRAZOLE 40 MG TABLET PO SCH (08:43)
[2022-02-01] MEDS: FOLIC ACID 1 MG TABLET PO SCH (08:43)
[2022-02-01] MEDS: SPIRONOLACTONE 25 MG TABLET PO SCH (08:43)
[2022-02-01] MEDS: LACTULOSE 20 GM/30 ML UDCUP PO SCH ×2 (08:43→21:36)
[2022-02-01] MEDS ORDERED: SODIUM CHLORIDE 0.9% 1,000 ML IV PRN (09:59)
[2022-02-01] MEDS ORDERED: LACTULOSE 20 GM/30 ML UDCUP PO ONE (13:00)
[2022-02-01] MEDS: cefTRIAXone 1,000 MG in SODIUM CHLORIDE 0.9% 100 ML IV SCH (16:00)
[2022-02-02 06:12] LABS: Basophils # 0.1 10*3/uL (0.0-0.2); Eosinophils # 0.2 10*3/uL (0.0-0.87); Eosinophils % 3.7 % (0.00-10.9); Hematocrit 28.9 VOL% (35.7-47.0); Hemoglobin 9.6 GM/DL (12.0-16.0); Immature Granulocytes % 0.2 %; Immature Granulocytes Absolute 0.01 #; Lymphocytes # 1.9 10*3/uL (1.4-4.0); Lymphocytes % 46.3 % (21.3-54.2); Mean Corpuscular HGB Conc 33.2 GM/DL (32-36); Mean Corpuscular Volume 92.9 FL (87-102); Mean Platelet Volume 10.8 FL (9.6-12.0); Monocytes # 0.9 10*3/uL (0.11-0.8); Monocytes % 22.2 % (1.7-12.7); Neutrophils % 25.6 % (38.7-73.9); Red Blood Count 3.11 MC/CUMM (3.8-5.5); White Blood Count 4.1 T/CUMM (4-12)
[2022-02-02 06:15] LABS: Platelet Count 52 T/CUMM (130-400)
[2022-02-02 06:28] LABS: Calcium 9.2 MG/DL (8.5-10.1); Osmolality,Calculated 276.4 MOS/KG (273-304); Potassium 2.9 MMOL/L (3.5-5.1)
[2022-02-02 06:39] LABS: Eosinophils 10 % (0-10); Hypochromia Slight; Lymphocytes 45 % (20-55); Macrocytosis 1+; Target Cells Few; Total Cells Counted 100
[2022-02-02 06:40] LABS: Platelet Estimate Decreased; Polychromasia Slight
[2022-02-02 07:57] LABS: INR 1.4; PT Patient Result 15.6 SECS (10.1-12.1)
[2022-02-02] MEDS: FUROSEMIDE 40 MG/4 ML VIAL IV SCH ×2 (09:23→17:22)
[2022-02-02] MEDS: MULTIVITAMIN (CENTRUM) TABLET PO SCH (09:23)
[2022-02-02] MEDS: PANTOPRAZOLE 40 MG TABLET PO SCH (09:23)
[2022-02-02] MEDS: FOLIC ACID 1 MG TABLET PO SCH (09:23)
[2022-02-02] MEDS: THIAMINE 100 MG TABLET PO SCH (09:24)
[2022-02-02] MEDS: LACTULOSE 20 GM/30 ML UDCUP PO SCH ×3 (09:24→21:11)
[2022-02-02] MEDS: SPIRONOLACTONE 25 MG TABLET PO SCH (09:24)
[2022-02-02] MEDS: cefTRIAXone 1,000 MG in SODIUM CHLORIDE 0.9% 100 ML IV SCH (17:22)
[2022-02-02] MEDS: POTASSIUM CHLORIDE RIDER 10 MEQ/100 ML PREMIX IV PRN ×4 (18:51→23:07)
[2022-02-03] MEDS: POTASSIUM CHLORIDE RIDER 10 MEQ/100 ML PREMIX IV PRN (00:13)
[2022-02-03 02:16] LABS: RBC,Peritoneal Fluid 421 T/CUMM
[2022-02-03 02:21] LABS: Neutrophils,Peritoneal Fluid 11 %
[2022-02-03 06:38] LABS: Basophils # 0.1 10*3/uL (0.0-0.2); Basophils % 1.8 % (0.0-0.8); Eosinophils # 0.2 10*3/uL (0.0-0.87); Eosinophils % 3.9 % (0.00-10.9); Hematocrit 28.6 VOL% (35.7-47.0); Hemoglobin 9.8 GM/DL (12.0-16.0); Immature Granulocytes % 0.2 %; Immature Granulocytes Absolute 0.01 #; Lymphocytes # 1.8 10*3/uL (1.4-4.0); Lymphocytes % 41.1 % (21.3-54.2); Mean Corpuscular HGB Conc 34.3 GM/DL (32-36); Mean Platelet Volume 11.7 FL (9.6-12.0); Monocytes % 23.1 % (1.7-12.7); Neutrophils % 29.9 % (38.7-73.9); Platelet Count 54 T/CUMM (130-400); Red Blood Count 3.11 MC/CUMM (3.8-5.5); Red Cell Distribution Width 19.5 % (9.3-17.3); White Blood Count 4.4 T/CUMM (4-12)
[2022-02-03 06:48] LABS: INR 1.6
[2022-02-03 06:57] LABS: Band Neutrophils 1 % (0-10); Eosinophils 7 % (0-10); Lymphocytes 39 % (20-55); Total Cells Counted 100
[2022-02-03 06:58] LABS: Microcytosis 1+; Target Cells Few
[2022-02-03 06:59] LABS: Hypochromia 1+; Platelet Estimate Decreased
[2022-02-03 07:02] LABS: Albumin 2.3 G/DL (3.4-5.0); Bilirubin,Total 3.5 MG/DL (0.20-1.00); Calcium 9.3 MG/DL (8.5-10.1); Osmolality,Calculated 273.7 MOS/KG (273-304); Potassium 3.2 MMOL/L (3.5-5.1); Total Protein 8.3 G/DL (6.4-8.2)
[2022-02-03] MEDS ORDERED: LACTATED RINGERS 1,000 ML IV SCH (08:00)
[2022-02-03] MEDS: SPIRONOLACTONE 25 MG TABLET PO SCH (08:13)
[2022-02-03] MEDS: PANTOPRAZOLE 40 MG TABLET PO SCH (08:13)
[2022-02-03] MEDS: FOLIC ACID 1 MG TABLET PO SCH (08:13)
[2022-02-03] MEDS: LACTULOSE 20 GM/30 ML UDCUP PO SCH (08:13)
[2022-02-03] MEDS: MULTIVITAMIN (CENTRUM) TABLET PO SCH (08:13)
[2022-02-03] MEDS: THIAMINE 100 MG TABLET PO SCH (08:14)
[2022-02-03] MEDS: FUROSEMIDE 40 MG/4 ML VIAL IV SCH (08:19)
[2022-02-03] MEDS ORDERED: FAMOTIDINE 20 MG/2 ML VIAL IV STA (08:51)
[2022-02-03] MEDS ORDERED: LIDOCAINE 2% 5 ML VIAL ONE (09:51)
[2022-02-03] MEDS ORDERED: propofoL 200 MG/20 ML VIAL IV ONE (09:51)
[2022-02-03] MEDS ORDERED: ETOMIDATE 20 MG/10 ML VIAL IV ONE (09:51)
[2022-02-03 11:38] VITALS: BP 147/69
[2022-02-03] MEDS ORDERED: POTASSIUM CHLORIDE 20 MEQ TABLET PO ONE (12:00)
== END 2022-02-03 14:51 | disposition home health service (06) | DRG 433 ==
LOC: EDBD → EDUNIT# → N.ED 13:15 → SUATTDRO 15:38 → N.EDINP 15:38 → N.3E 17:26
PROVIDERS: ADMIT Hospitalist; ATTEND Internal Medicine

== ENCOUNTER 2022-04-04 09:51 | Inpatient (IN) ==
[2022-04-04] MEDS ORDERED: methylPREDNISolone SOD SUC 125 MG/2 ML VIAL IV STA (10:23)
[2022-04-04] MEDS ORDERED: ALBUTEROL/IPRATROPIUM 3 ML NEB RESP TX STA (10:23)
[2022-04-04] MEDS ORDERED: ONDANSETRON 4 MG/2 ML VIAL IV STA (10:23)
[2022-04-04 10:45] LABS: Basophils # 0.1 10*3/uL (0.0-0.2); Basophils % 0.6 % (0.0-0.8); Eosinophils # 1.1 10*3/uL (0.0-0.87); Eosinophils % 10.1 % (0.00-10.9); Hematocrit 29.2 VOL% (35.7-47.0); Hemoglobin 9.9 GM/DL (12.0-16.0); Immature Granulocytes % 0.6 %; Immature Granulocytes Absolute 0.06 #; Lymphocytes # 1.7 10*3/uL (1.4-4.0); Lymphocytes % 15.5 % (21.3-54.2); Mean Corpuscular HGB Conc 33.9 GM/DL (32-36); Mean Corpuscular Volume 91.3 FL (87-102); Mean Platelet Volume 10.3 FL (9.6-12.0); Monocytes # 1.8 10*3/uL (0.11-0.8); Monocytes % 16.7 % (1.7-12.7); Neutrophils % 56.5 % (38.7-73.9); Platelet Count 106 T/CUMM (130-400); Red Cell Distribution Width 23.4 % (9.3-17.3); White Blood Count 10.8 T/CUMM (4-12)
[2022-04-04 10:50] LABS: INR 1.6; PT Patient Result 17.5 SECS (10.1-12.1)
[2022-04-04 10:59] LABS: Albumin 2.4 G/DL (3.4-5.0); Bilirubin,Total 6.2 MG/DL (0.20-1.00); Calcium 8.6 MG/DL (8.5-10.1); Osmolality,Calculated 280.3 MOS/KG (273-304); Potassium 3.1 MMOL/L (3.5-5.1); Total Protein 8.6 G/DL (6.4-8.2)
[2022-04-04 11:11] LABS: Band Neutrophils 2 % (0-10); Eosinophils 15 % (0-10); Lymphocytes 16 % (20-55); Total Cells Counted 100
[2022-04-04 11:12] LABS: Anisocytosis Slight; Macrocytosis Slight; Platelet Estimate Adequate
[2022-04-04 11:48] LABS: ABG Base Excess -0.2 MMOL/L (-2.5-2.5); ABG HCO3 24.2 MMOL/L (20-26); ABG Oxygen Saturation 97.4 % (95-100); ABG PCO2 34.9 MM HG (35-48); ABG PH 7.438 (7.35-7.45); ABG PO2 88.3 MM HG (80-95)
[2022-04-04] MEDS ORDERED: ALBUTEROL/IPRATROPIUM 3 ML NEB RESP TX PRN (13:29)
[2022-04-04] MEDS ORDERED: LACTULOSE 20 GM/30 ML UDCUP PO PRN (13:29)
[2022-04-04] MEDS ORDERED: hydrALAZINE 20 MG/1 ML VIAL IV PRN (13:29)
[2022-04-04] MEDS ORDERED: ONDANSETRON 4 MG/2 ML VIAL IV PRN (13:29)
[2022-04-04] MEDS ORDERED: hydrOXYzine HCL 2 MG/ML 30 ML/BOTTLE PO PRN (13:33)
[2022-04-04] MEDS ORDERED: LORazepam 2 MG/1 ML VIAL IV PRN (13:35)
[2022-04-04 14:01] LABS: Thyroid Stimulating Hormone 2.53 uIU/ml (0.358-3.74)
[2022-04-04] MEDS: MEROPENEM 500 MG in SODIUM CHLORIDE 0.9% 100 ML IV SCH ×2 (14:14→21:05)
[2022-04-04] MEDS ORDERED: MAGNESIUM SULF RIDER 2 GM/50 ML PREMIX IV PRN (14:18)
[2022-04-04] MEDS ORDERED: MAGNESIUM SULF RIDER 4 GM/100 ML PREMIX IV PRN (14:18)
[2022-04-04] MEDS ORDERED: LACTULOSE 20 GM PO SCH (15:00)
[2022-04-04] MEDS: FUROSEMIDE 20 MG TABLET PO SCH (21:01)
[2022-04-04] MEDS: OSELTAMIVIR 30 MG CAPSULE PO SCH (21:01)
[2022-04-04] MEDS ORDERED: guaiFENesin/CODEINE 5 ML LIQUID PO PRN (21:12)
[2022-04-05] MEDS ORDERED: LACTATED RINGERS 1,000 ML IV ONE (00:15)
[2022-04-05] MEDS: MEROPENEM 500 MG in SODIUM CHLORIDE 0.9% 100 ML IV SCH ×3 (05:46→22:00)
[2022-04-05 06:03] LABS: Basophils % 0.4 % (0.0-0.8); Eosinophils # 0.1 10*3/uL (0.0-0.87); Eosinophils % 1.3 % (0.00-10.9); Hematocrit 21.9 VOL% (35.7-47.0); Hemoglobin 7.5 GM/DL (12.0-16.0); Immature Granulocytes % 1.3 %; Immature Granulocytes Absolute 0.11 #; Lymphocytes # 1.2 10*3/uL (1.4-4.0); Lymphocytes % 14.6 % (21.3-54.2); Mean Corpuscular HGB Conc 34.2 GM/DL (32-36); Mean Corpuscular Volume 92.4 FL (87-102); Monocytes # 1.2 10*3/uL (0.11-0.8); Monocytes % 14.1 % (1.7-12.7); NRBC # 0.08 10*3/uL; Neutrophils % 68.3 % (38.7-73.9); Platelet Count 95 T/CUMM (130-400); Red Blood Count 2.37 MC/CUMM (3.8-5.5); Red Cell Distribution Width 23.6 % (9.3-17.3); White Blood Count 8.4 T/CUMM (4-12)
[2022-04-05 06:25] LABS: Albumin 1.8 G/DL (3.4-5.0); Bilirubin,Total 3.3 MG/DL (0.20-1.00); Calcium 8.3 MG/DL (8.5-10.1); Osmolality,Calculated 293.1 MOS/KG (273-304); Potassium 3.2 MMOL/L (3.5-5.1); Total Protein 7.2 G/DL (6.4-8.2)
[2022-04-05 06:46] LABS: Target Cells 2+
[2022-04-05 06:47] LABS: Platelet Estimate Decreased
[2022-04-05] MEDS ORDERED: POTASSIUM CHLORIDE 20 MEQ TABLET PO ONE ×2 (08:34→13:34)
[2022-04-05] MEDS ORDERED: hydrOXYzine HCL 10 MG TABLET PO PRN (08:55)
[2022-04-05] MEDS: FOLIC ACID 1 MG TABLET PO SCH (10:25)
[2022-04-05] MEDS: SPIRONOLACTONE 25 MG TABLET PO SCH (10:25)
[2022-04-05] MEDS: FUROSEMIDE 20 MG TABLET PO SCH ×2 (10:26→20:30)
[2022-04-05] MEDS: CETIRIZINE 10 MG TABLET PO SCH (10:26)
[2022-04-05] MEDS: MAGNESIUM OXIDE 400 MG TABLET PO SCH (10:26)
[2022-04-05] MEDS: POTASSIUM CHLORIDE 20 MEQ TABLET PO SCH (10:26)
[2022-04-05] MEDS: PANTOPRAZOLE 40 MG TABLET PO SCH (10:26)
[2022-04-05] MEDS: OSELTAMIVIR 30 MG CAPSULE PO SCH ×2 (10:26→20:30)
[2022-04-05] MEDS: THIAMINE 100 MG TABLET PO SCH (10:26)
[2022-04-05] MEDS: amLODIPine 5 MG TABLET PO SCH (10:26)
[2022-04-05] MEDS ORDERED: diphenhydrAMINE CAP 25 MG CAPSULE PO PRN (10:56)
[2022-04-05] MEDS: DOXYCYCLINE HYCLATE 100 MG CAPSULE PO SCH (15:55)
[2022-04-06] MEDS: DOXYCYCLINE HYCLATE 100 MG CAPSULE PO SCH ×4 (00:54→21:07)
[2022-04-06 04:59] LABS: Basophils # 0.1 10*3/uL (0.0-0.2); Basophils % 0.6 % (0.0-0.8); Eosinophils # 1.9 10*3/uL (0.0-0.87); Eosinophils % 10.5 % (0.00-10.9); Hematocrit 25.4 VOL% (35.7-47.0); Hemoglobin 8.3 GM/DL (12.0-16.0); Immature Granulocytes % 0.8 %; Immature Granulocytes Absolute 0.14 #; Lymphocytes # 1.8 10*3/uL (1.4-4.0); Lymphocytes % 10.1 % (21.3-54.2); Mean Corpuscular HGB Conc 32.7 GM/DL (32-36); Mean Corpuscular Volume 94.8 FL (87-102); Monocytes # 2.8 10*3/uL (0.11-0.8); Monocytes % 15.6 % (1.7-12.7); NRBC # 0.17 10*3/uL; Neutrophils % 62.4 % (38.7-73.9); Platelet Count 45 T/CUMM (130-400); Red Blood Count 2.68 MC/CUMM (3.8-5.5); Red Cell Distribution Width 23.4 % (9.3-17.3); White Blood Count 18.2 T/CUMM (4-12)
[2022-04-06] MEDS: MEROPENEM 500 MG in SODIUM CHLORIDE 0.9% 100 ML IV SCH ×3 (05:03→21:07)
[2022-04-06 05:46] LABS: Albumin 1.8 G/DL (3.4-5.0); Bilirubin,Total 2.7 MG/DL (0.20-1.00); Calcium 8.7 MG/DL (8.5-10.1); Osmolality,Calculated 276.7 MOS/KG (273-304); Potassium 4.7 MMOL/L (3.5-5.1)
[2022-04-06] MEDS: CETIRIZINE 10 MG TABLET PO SCH (09:03)
[2022-04-06] MEDS: PANTOPRAZOLE 40 MG TABLET PO SCH (09:04)
[2022-04-06] MEDS: THIAMINE 100 MG TABLET PO SCH (09:04)
[2022-04-06] MEDS: FOLIC ACID 1 MG TABLET PO SCH (09:04)
[2022-04-06] MEDS: MAGNESIUM OXIDE 400 MG TABLET PO SCH (09:04)
[2022-04-06] MEDS: FUROSEMIDE 20 MG TABLET PO SCH ×2 (09:04→21:07)
[2022-04-06] MEDS: amLODIPine 5 MG TABLET PO SCH (09:04)
[2022-04-06] MEDS: SPIRONOLACTONE 25 MG TABLET PO SCH (09:04)
[2022-04-06] MEDS: POTASSIUM CHLORIDE 20 MEQ TABLET PO SCH (10:13)
[2022-04-06] MEDS ORDERED: SODIUM CHLORIDE 0.9% 1,000 ML IV ONE (11:23)
[2022-04-06] MEDS ORDERED: ACETAMINOPHEN 325 MG TABLET PO ONE (21:15)
[2022-04-07] MEDS: MEROPENEM 500 MG in SODIUM CHLORIDE 0.9% 100 ML IV SCH ×3 (04:54→21:24)
[2022-04-07 05:21] LABS: Basophils # 0.1 10*3/uL (0.0-0.2); Basophils % 0.6 % (0.0-0.8); Eosinophils # 4.2 10*3/uL (0.0-0.87); Eosinophils % 29.3 % (0.00-10.9); Hematocrit 21.1 VOL% (35.7-47.0); Hemoglobin 7.2 GM/DL (12.0-16.0); Immature Granulocytes % 0.5 %; Immature Granulocytes Absolute 0.07 #; Lymphocytes # 2.6 10*3/uL (1.4-4.0); Lymphocytes % 18.3 % (21.3-54.2); Mean Corpuscular HGB Conc 34.1 GM/DL (32-36); Mean Corpuscular Volume 90.9 FL (87-102); Mean Platelet Volume 9.9 FL (9.6-12.0); Monocytes # 2.1 10*3/uL (0.11-0.8); NRBC # 0.03 10*3/uL; Neutrophils % 36.3 % (38.7-73.9); Platelet Count 96 T/CUMM (130-400); Red Blood Count 2.32 MC/CUMM (3.8-5.5); Red Cell Distribution Width 21.3 % (9.3-17.3); White Blood Count 14.3 T/CUMM (4-12)
[2022-04-07 05:36] LABS: Albumin 1.8 G/DL (3.4-5.0); Bilirubin,Total 2.4 MG/DL (0.20-1.00); Calcium 8.2 MG/DL (8.5-10.1); Osmolality,Calculated 285.1 MOS/KG (273-304); Potassium 3.3 MMOL/L (3.5-5.1); Total Protein 6.5 G/DL (6.4-8.2)
[2022-04-07 05:48] LABS: Eosinophils 27 % (0-10); Lymphocytes 29 % (20-55); Nucleated Red Blood Cells 1 /100 WBC (0-5); Platelet Estimate Decreased; Target Cells 2+; Total Cells Counted 100
[2022-04-07] MEDS: THIAMINE 100 MG TABLET PO SCH (08:44)
[2022-04-07] MEDS: POTASSIUM CHLORIDE 20 MEQ TABLET PO SCH (08:44)
[2022-04-07] MEDS: amLODIPine 5 MG TABLET PO SCH (08:44)
[2022-04-07] MEDS: DOXYCYCLINE HYCLATE 100 MG CAPSULE PO SCH ×2 (08:44→21:24)
[2022-04-07] MEDS: SPIRONOLACTONE 25 MG TABLET PO SCH (08:44)
[2022-04-07] MEDS: MAGNESIUM OXIDE 400 MG TABLET PO SCH (08:44)
[2022-04-07] MEDS: FUROSEMIDE 20 MG TABLET PO SCH (08:45)
[2022-04-07] MEDS: CETIRIZINE 10 MG TABLET PO SCH (08:45)
[2022-04-07] MEDS: FOLIC ACID 1 MG TABLET PO SCH (08:45)
[2022-04-07] MEDS: PANTOPRAZOLE 40 MG TABLET PO SCH (08:45)
[2022-04-07] MEDS ORDERED: FUROSEMIDE 40 MG/4 ML VIAL IV ONE (10:36)
[2022-04-08 04:51] LABS: Basophils # 0.1 10*3/uL (0.0-0.2); Basophils % 0.5 % (0.0-0.8); Eosinophils # 4.8 10*3/uL (0.0-0.87); Hematocrit 20.7 VOL% (35.7-47.0); Immature Granulocytes % 0.5 %; Immature Granulocytes Absolute 0.07 #; Lymphocytes # 2.7 10*3/uL (1.4-4.0); Lymphocytes % 18.7 % (21.3-54.2); Mean Corpuscular HGB Conc 33.8 GM/DL (32-36); Mean Corpuscular Volume 90.8 FL (87-102); Mean Platelet Volume 10.3 FL (9.6-12.0); Monocytes # 1.9 10*3/uL (0.11-0.8); Monocytes % 12.7 % (1.7-12.7); Neutrophils % 34.6 % (38.7-73.9); Platelet Count 102 T/CUMM (130-400); Red Blood Count 2.28 MC/CUMM (3.8-5.5); Red Cell Distribution Width 20.4 % (9.3-17.3); White Blood Count 14.5 T/CUMM (4-12)
[2022-04-08] MEDS: MEROPENEM 500 MG in SODIUM CHLORIDE 0.9% 100 ML IV SCH ×3 (05:01→20:33)
[2022-04-08 05:14] LABS: Albumin 1.7 G/DL (3.4-5.0); Osmolality,Calculated 279.5 MOS/KG (273-304); Potassium 3.3 MMOL/L (3.5-5.1); Total Protein 6.5 G/DL (6.4-8.2)
[2022-04-08 05:18] LABS: Eosinophils 36 % (0-10); Hypochromia Slight; Lymphocytes 24 % (20-55); Target Cells 2+; Total Cells Counted 100
[2022-04-08 05:19] LABS: Macrocytosis 1+; Platelet Estimate Decreased; Polychromasia Slight
[2022-04-08] MEDS ORDERED: POTASSIUM CHLORIDE 20 MEQ TABLET PO ONE ×2 (09:00→16:00)
[2022-04-08] MEDS ORDERED: ZIPRASIDONE 20 MG/1 ML VIAL IM PRN (09:00)
[2022-04-08] MEDS ORDERED: FUROSEMIDE 40 MG/4 ML VIAL IV ONE (09:00)
[2022-04-08] MEDS: chlordiazePOXIDE 10 MG CAPSULE PO SCH ×3 (10:00→20:32)
[2022-04-08] MEDS: ZIPRASIDONE 20 MG CAPSULE PO SCH ×2 (10:01→20:32)
[2022-04-08] MEDS ORDERED: SODIUM CHLORIDE 0.9% 1,000 ML IV PRN (11:13)
[2022-04-08] MEDS: SPIRONOLACTONE 25 MG TABLET PO SCH (12:00)
[2022-04-08] MEDS: DOXYCYCLINE HYCLATE 100 MG CAPSULE PO SCH ×2 (12:00→20:32)
[2022-04-08] MEDS: MAGNESIUM OXIDE 400 MG TABLET PO SCH (12:01)
[2022-04-08] MEDS: amLODIPine 5 MG TABLET PO SCH (12:01)
[2022-04-08] MEDS: CETIRIZINE 10 MG TABLET PO SCH (12:01)
[2022-04-08] MEDS: THIAMINE 100 MG TABLET PO SCH (12:01)
[2022-04-08] MEDS: FOLIC ACID 1 MG TABLET PO SCH (12:01)
[2022-04-08] MEDS: PANTOPRAZOLE 40 MG TABLET PO SCH (12:01)
[2022-04-08] MEDS: POTASSIUM CHLORIDE 20 MEQ TABLET PO SCH (12:02)
[2022-04-09 05:21] LABS: Basophils # 0.1 10*3/uL (0.0-0.2); Basophils % 0.7 % (0.0-0.8); Eosinophils # 5.2 10*3/uL (0.0-0.87); Eosinophils % 36.3 % (0.00-10.9); Hematocrit 30.2 VOL% (35.7-47.0); Hemoglobin 10.2 GM/DL (12.0-16.0); Immature Granulocytes % 0.6 %; Immature Granulocytes Absolute 0.08 #; Lymphocytes # 1.9 10*3/uL (1.4-4.0); Lymphocytes % 13.4 % (21.3-54.2); Mean Corpuscular HGB Conc 33.8 GM/DL (32-36); Mean Corpuscular Volume 88.3 FL (87-102); Mean Platelet Volume 10.5 FL (9.6-12.0); Monocytes # 1.9 10*3/uL (0.11-0.8); Monocytes % 13.4 % (1.7-12.7); Neutrophils % 35.6 % (38.7-73.9); Platelet Count 108 T/CUMM (130-400); Red Blood Count 3.42 MC/CUMM (3.8-5.5); Red Cell Distribution Width 17.5 % (9.3-17.3); White Blood Count 14.3 T/CUMM (4-12)
[2022-04-09 05:47] LABS: Albumin 1.8 G/DL (3.4-5.0); Bilirubin,Total 3.1 MG/DL (0.20-1.00); Calcium 8.2 MG/DL (8.5-10.1); Osmolality,Calculated 278.4 MOS/KG (273-304); Potassium 4.6 MMOL/L (3.5-5.1)
[2022-04-09 05:55] LABS: Eosinophils 42 % (0-10); Hypochromia Slight; Lymphocytes 10 % (20-55); Macrocytosis 1+; Target Cells 2+; Total Cells Counted 100
[2022-04-09 05:56] LABS: Platelet Estimate Adequate
[2022-04-09] MEDS: MEROPENEM 500 MG in SODIUM CHLORIDE 0.9% 100 ML IV SCH ×3 (06:05→20:37)
[2022-04-09] MEDS: ZIPRASIDONE 20 MG CAPSULE PO SCH ×2 (09:57→20:38)
[2022-04-09] MEDS: THIAMINE 100 MG TABLET PO SCH (09:57)
[2022-04-09] MEDS: MAGNESIUM OXIDE 400 MG TABLET PO SCH (09:57)
[2022-04-09] MEDS: chlordiazePOXIDE 10 MG CAPSULE PO SCH ×3 (09:57→20:50)
[2022-04-09] MEDS: amLODIPine 5 MG TABLET PO SCH (09:57)
[2022-04-09] MEDS: DOXYCYCLINE HYCLATE 100 MG CAPSULE PO SCH ×2 (09:57→20:38)
[2022-04-09] MEDS: SPIRONOLACTONE 25 MG TABLET PO SCH (09:58)
[2022-04-09] MEDS: CETIRIZINE 10 MG TABLET PO SCH (09:58)
[2022-04-09] MEDS: PANTOPRAZOLE 40 MG TABLET PO SCH (09:58)
[2022-04-09] MEDS: FOLIC ACID 1 MG TABLET PO SCH (09:58)
[2022-04-09] MEDS: POTASSIUM CHLORIDE 20 MEQ TABLET PO SCH (09:58)
[2022-04-10] MEDS: MEROPENEM 500 MG in SODIUM CHLORIDE 0.9% 100 ML IV SCH ×3 (05:18→21:56)
[2022-04-10 05:34] LABS: Basophils # 0.1 10*3/uL (0.0-0.2); Basophils % 0.7 % (0.0-0.8); Eosinophils # 4.9 10*3/uL (0.0-0.87); Eosinophils % 35.8 % (0.00-10.9); Hematocrit 28.6 VOL% (35.7-47.0); Immature Granulocytes % 0.7 %; Lymphocytes # 2.4 10*3/uL (1.4-4.0); Lymphocytes % 17.2 % (21.3-54.2); Mean Corpuscular Volume 87.7 FL (87-102); Mean Platelet Volume 10.5 FL (9.6-12.0); Monocytes # 1.8 10*3/uL (0.11-0.8); Neutrophils % 32.6 % (38.7-73.9); Platelet Count 112 T/CUMM (130-400); Red Blood Count 3.26 MC/CUMM (3.8-5.5); Red Cell Distribution Width 17.8 % (9.3-17.3); White Blood Count 13.7 T/CUMM (4-12)
[2022-04-10 05:45] LABS: Albumin 1.6 G/DL (3.4-5.0); Bilirubin,Total 2.5 MG/DL (0.20-1.00); Calcium 7.9 MG/DL (8.5-10.1); Osmolality,Calculated 278.3 MOS/KG (273-304); Potassium 4.5 MMOL/L (3.5-5.1); Total Protein 6.6 G/DL (6.4-8.2)
[2022-04-10 06:00] LABS: Eosinophils 31 % (0-10); Lymphocytes 12 % (20-55); Total Cells Counted 100
[2022-04-10 06:01] LABS: Platelet Estimate Decreased; Target Cells 1+
[2022-04-10] MEDS: MAGNESIUM OXIDE 400 MG TABLET PO SCH (09:32)
[2022-04-10] MEDS: CETIRIZINE 10 MG TABLET PO SCH (09:32)
[2022-04-10] MEDS: SPIRONOLACTONE 25 MG TABLET PO SCH (09:32)
[2022-04-10] MEDS: DOXYCYCLINE HYCLATE 100 MG CAPSULE PO SCH ×2 (09:32→21:56)
[2022-04-10] MEDS: ZIPRASIDONE 20 MG CAPSULE PO SCH ×2 (09:33→21:56)
[2022-04-10] MEDS: chlordiazePOXIDE 10 MG CAPSULE PO SCH ×3 (09:33→21:56)
[2022-04-10] MEDS: POTASSIUM CHLORIDE 20 MEQ TABLET PO SCH (09:33)
[2022-04-10] MEDS: amLODIPine 5 MG TABLET PO SCH (09:34)
[2022-04-10] MEDS: FOLIC ACID 1 MG TABLET PO SCH (09:34)
[2022-04-10] MEDS: PANTOPRAZOLE 40 MG TABLET PO SCH (09:36)
[2022-04-10] MEDS: THIAMINE 100 MG TABLET PO SCH (09:36)
[2022-04-11] MEDS: ACETAMINOPHEN 325 MG TABLET PO PRN ×2 (01:45→14:40)
[2022-04-11 05:15] LABS: Basophils # 0.1 10*3/uL (0.0-0.2); Basophils % 0.8 % (0.0-0.8); Eosinophils # 6.1 10*3/uL (0.0-0.87); Hematocrit 26.4 VOL% (35.7-47.0); Hemoglobin 9.2 GM/DL (12.0-16.0); Immature Granulocytes % 0.6 %; Immature Granulocytes Absolute 0.09 #; Lymphocytes # 2.1 10*3/uL (1.4-4.0); Lymphocytes % 14.5 % (21.3-54.2); Mean Corpuscular HGB Conc 34.8 GM/DL (32-36); Mean Corpuscular Volume 88.3 FL (87-102); Mean Platelet Volume 10.4 FL (9.6-12.0); Monocytes # 1.5 10*3/uL (0.11-0.8); Monocytes % 10.1 % (1.7-12.7); Platelet Count 111 T/CUMM (130-400); Red Blood Count 2.99 MC/CUMM (3.8-5.5); Red Cell Distribution Width 17.9 % (9.3-17.3); White Blood Count 14.8 T/CUMM (4-12)
[2022-04-11 05:35] LABS: Albumin 1.5 G/DL (3.4-5.0); Bilirubin,Total 2.2 MG/DL (0.20-1.00); Calcium 8.1 MG/DL (8.5-10.1); Osmolality,Calculated 280.1 MOS/KG (273-304); Potassium 4.6 MMOL/L (3.5-5.1); Total Protein 6.6 G/DL (6.4-8.2)
[2022-04-11 05:48] LABS: Eosinophils 37 % (0-10); Hypochromia Slight; Lymphocytes 13 % (20-55); Nucleated Red Blood Cells 1 /100 WBC (0-5); Platelet Estimate Adequate; Total Cells Counted 100
[2022-04-11] MEDS: MEROPENEM 500 MG in SODIUM CHLORIDE 0.9% 100 ML IV SCH ×3 (06:28→21:37)
[2022-04-11 07:16] LABS: Calcium 8.1 MG/DL (8.5-10.1); Osmolality,Calculated 280.1 MOS/KG (273-304); Potassium 4.7 MMOL/L (3.5-5.1)
[2022-04-11] MEDS: PANTOPRAZOLE 40 MG TABLET PO SCH (08:23)
[2022-04-11] MEDS: POTASSIUM CHLORIDE 20 MEQ TABLET PO SCH (08:23)
[2022-04-11] MEDS: CETIRIZINE 10 MG TABLET PO SCH (08:23)
[2022-04-11] MEDS: chlordiazePOXIDE 10 MG CAPSULE PO SCH ×3 (08:23→21:38)
[2022-04-11] MEDS: FOLIC ACID 1 MG TABLET PO SCH (08:24)
[2022-04-11] MEDS: DOXYCYCLINE HYCLATE 100 MG CAPSULE PO SCH ×2 (08:24→21:37)
[2022-04-11] MEDS: SPIRONOLACTONE 25 MG TABLET PO SCH (08:24)
[2022-04-11] MEDS: ZIPRASIDONE 20 MG CAPSULE PO SCH ×2 (08:24→21:38)
[2022-04-11] MEDS: MAGNESIUM OXIDE 400 MG TABLET PO SCH (08:24)
[2022-04-11] MEDS: amLODIPine 5 MG TABLET PO SCH (08:24)
[2022-04-11] MEDS: THIAMINE 100 MG TABLET PO SCH (08:24)
[2022-04-11] MEDS: metroNIDAZOLE INJ 500 MG/100 ML PREMIX IV SCH ×2 (12:48→18:11)
[2022-04-11 17:55] LABS: RBC,Urine 83 /HPF (0-4); Squamous Epithelial Cell,Urine Occasional /HPF (0-10)
[2022-04-11 17:56] LABS: Bilirubin,Urine Negative (Negative); Blood, Urine Large mg/dL (Negative); Glucose,Urine (UA) Negative (Negative); Ketones,Urine Negative (Negative); Nitrite,Urine Negative (Negative); Protein,Urine Negative (Negative); Urine Appearance Clear (Clear); Urine Color Yellow (Yellow); Urine Specific Gravity 1.015 (1.001-1.035); Urine Urobilinogen 0.2 eU/dL (<2.0)
[2022-04-12] MEDS: metroNIDAZOLE INJ 500 MG/100 ML PREMIX IV SCH (03:55)
[2022-04-12] MEDS ORDERED: MEROPENEM 500 MG in SODIUM CHLORIDE 0.9% 100 ML IV SCH (08:00)
[2022-04-12 08:03] LABS: Basophils # 0.2 10*3/uL (0.0-0.2); Eosinophils # 6.2 10*3/uL (0.0-0.87); Eosinophils % 39.3 % (0.00-10.9); Hematocrit 30.1 VOL% (35.7-47.0); Hemoglobin 10.4 GM/DL (12.0-16.0); Immature Granulocytes % 0.7 %; Immature Granulocytes Absolute 0.11 #; Lymphocytes # 1.6 10*3/uL (1.4-4.0); Lymphocytes % 10.2 % (21.3-54.2); Mean Corpuscular HGB Conc 34.6 GM/DL (32-36); Mean Platelet Volume 10.4 FL (9.6-12.0); Monocytes # 1.8 10*3/uL (0.11-0.8); Monocytes % 11.6 % (1.7-12.7); Neutrophils % 37.2 % (38.7-73.9); Platelet Count 114 T/CUMM (130-400); Red Blood Count 3.46 MC/CUMM (3.8-5.5); Red Cell Distribution Width 18.2 % (9.3-17.3); White Blood Count 15.9 T/CUMM (4-12)
[2022-04-12 08:15] LABS: Albumin 1.7 G/DL (3.4-5.0); Bilirubin,Total 2.3 MG/DL (0.20-1.00); Calcium 8.5 MG/DL (8.5-10.1); Osmolality,Calculated 279.4 MOS/KG (273-304); Total Protein 7.3 G/DL (6.4-8.2)
[2022-04-12 09:12] LABS: Band Neutrophils 1 % (0-10); Eosinophils 47 % (0-10); Hypochromia Slight; Lymphocytes 6 % (20-55); Total Cells Counted 100
[2022-04-12 09:13] LABS: Macrocytosis 1+; Platelet Estimate Decreased; Target Cells 1+
[2022-04-12] MEDS: SPIRONOLACTONE 25 MG TABLET PO SCH (10:15)
[2022-04-12] MEDS: THIAMINE 100 MG TABLET PO SCH (10:16)
[2022-04-12] MEDS: amLODIPine 5 MG TABLET PO SCH (10:16)
[2022-04-12] MEDS: chlordiazePOXIDE 10 MG CAPSULE PO SCH ×3 (10:16→21:48)
[2022-04-12] MEDS: FOLIC ACID 1 MG TABLET PO SCH (10:16)
[2022-04-12] MEDS: PANTOPRAZOLE 40 MG TABLET PO SCH (10:16)
[2022-04-12] MEDS: DOXYCYCLINE HYCLATE 100 MG CAPSULE PO SCH ×2 (10:16→21:47)
[2022-04-12] MEDS: CETIRIZINE 10 MG TABLET PO SCH (10:16)
[2022-04-12] MEDS: MAGNESIUM OXIDE 400 MG TABLET PO SCH (10:16)
[2022-04-12] MEDS: POTASSIUM CHLORIDE 20 MEQ TABLET PO SCH (10:31)
[2022-04-12] MEDS: ZIPRASIDONE 20 MG CAPSULE PO SCH ×2 (12:55→21:47)
[2022-04-12 15:16] LABS: INR 1.6; PT Patient Result 16.7 SECS (10.1-12.1)
[2022-04-12] MEDS: MEROPENEM 500 MG in SODIUM CHLORIDE 0.9% 100 ML IV SCH (17:27)
[2022-04-12 18:08] LABS: Eosinophils,Pleural Fluid 3 %; Lymphocytes,Pleural Fluid 81 %; Monocytes,Pleural Fluid 7 %; Neutrophils,Pleural Fluid 9 %
[2022-04-12 18:12] LABS: RBC,Pleural Fluid 2015 T/CUMM
[2022-04-12 18:52] LABS: Glucose,Pleural Fluid 148 MG/DL; LDH,Pleural Fluid 101 U/L
[2022-04-12] MEDS: VANCOMYCIN INJ 1,000 MG in SODIUM CHLORIDE 0.9% 250 ML IV SCH (21:48)
[2022-04-13] MEDS: MEROPENEM 500 MG in SODIUM CHLORIDE 0.9% 100 ML IV SCH ×3 (01:31→16:50)
[2022-04-13 06:42] LABS: Basophils # 0.2 10*3/uL (0.0-0.2); Basophils % 1.4 % (0.0-0.8); Eosinophils # 5.1 10*3/uL (0.0-0.87); Hematocrit 30.8 VOL% (35.7-47.0); Hemoglobin 10.9 GM/DL (12.0-16.0); Immature Granulocytes % 0.8 %; Immature Granulocytes Absolute 0.11 #; Lymphocytes # 2.9 10*3/uL (1.4-4.0); Lymphocytes % 20.1 % (21.3-54.2); Mean Corpuscular HGB Conc 35.4 GM/DL (32-36); Mean Corpuscular Volume 86.8 FL (87-102); Mean Platelet Volume 10.1 FL (9.6-12.0); Monocytes % 13.6 % (1.7-12.7); Neutrophils % 29.1 % (38.7-73.9); Platelet Count 104 T/CUMM (130-400); Red Blood Count 3.55 MC/CUMM (3.8-5.5); Red Cell Distribution Width 17.9 % (9.3-17.3); White Blood Count 14.6 T/CUMM (4-12)
[2022-04-13 07:08] LABS: Band Neutrophils 2 % (0-10); Eosinophils 37 % (0-10); Lymphocytes 14 % (20-55); Total Cells Counted 100
[2022-04-13 07:09] LABS: Hypochromia Slight; Macrocytosis Slight; Target Cells Few
[2022-04-13 08:13] LABS: INR 1.7; PT Patient Result 17.8 SECS (10.1-12.1)
[2022-04-13 09:00] LABS: Albumin 1.3 G/DL (3.4-5.0); Bilirubin,Total 2.1 MG/DL (0.20-1.00); Calcium 8.1 MG/DL (8.5-10.1); Osmolality,Calculated 283.1 MOS/KG (273-304); Potassium 4.5 MMOL/L (3.5-5.1); Total Protein 6.8 G/DL (6.4-8.2)
[2022-04-13] MEDS: chlordiazePOXIDE 10 MG CAPSULE PO SCH ×2 (09:37→14:27)
[2022-04-13] MEDS: FOLIC ACID 1 MG TABLET PO SCH (09:37)
[2022-04-13] MEDS: PANTOPRAZOLE 40 MG TABLET PO SCH (09:37)
[2022-04-13] MEDS: SPIRONOLACTONE 25 MG TABLET PO SCH (09:37)
[2022-04-13] MEDS: CETIRIZINE 10 MG TABLET PO SCH (09:37)
[2022-04-13] MEDS: POTASSIUM CHLORIDE 20 MEQ TABLET PO SCH (09:38)
[2022-04-13] MEDS: DOXYCYCLINE HYCLATE 100 MG CAPSULE PO SCH (09:38)
[2022-04-13] MEDS: amLODIPine 5 MG TABLET PO SCH (09:38)
[2022-04-13] MEDS: THIAMINE 100 MG TABLET PO SCH (09:38)
[2022-04-13] MEDS: MAGNESIUM OXIDE 400 MG TABLET PO SCH (09:55)
[2022-04-13] MEDS: ZIPRASIDONE 20 MG CAPSULE PO SCH (09:55)
[2022-04-13] MEDS: VANCOMYCIN INJ 1,000 MG in SODIUM CHLORIDE 0.9% 250 ML IV SCH (14:28)
[2022-04-14] MEDS: MEROPENEM 500 MG in SODIUM CHLORIDE 0.9% 100 ML IV SCH ×3 (01:00→16:15)
[2022-04-14 05:19] LABS: Basophils # 0.2 10*3/uL (0.0-0.2); Basophils % 1.5 % (0.0-0.8); Eosinophils # 3.7 10*3/uL (0.0-0.87); Eosinophils % 27.2 % (0.00-10.9); Hematocrit 25.8 VOL% (35.7-47.0); Hemoglobin 9.1 GM/DL (12.0-16.0); Immature Granulocytes % 0.6 %; Immature Granulocytes Absolute 0.08 #; Lymphocytes # 2.8 10*3/uL (1.4-4.0); Lymphocytes % 20.7 % (21.3-54.2); Mean Corpuscular HGB Conc 35.3 GM/DL (32-36); Mean Corpuscular Volume 85.7 FL (87-102); Mean Platelet Volume 10.7 FL (9.6-12.0); Monocytes % 14.6 % (1.7-12.7); Neutrophils % 35.4 % (38.7-73.9); Platelet Count 91 T/CUMM (130-400); Red Blood Count 3.01 MC/CUMM (3.8-5.5); Red Cell Distribution Width 17.7 % (9.3-17.3); White Blood Count 13.7 T/CUMM (4-12)
[2022-04-14 05:46] LABS: Band Neutrophils 2 % (0-10); Eosinophils 33 % (0-10); Hypochromia Slight; Lymphocytes 18 % (20-55); Total Cells Counted 100
[2022-04-14 05:47] LABS: Macrocytosis 1+; Platelet Estimate Decreased; Target Cells 1+
[2022-04-14 05:59] LABS: Albumin 1.5 G/DL (3.4-5.0); Bilirubin,Total 2.7 MG/DL (0.20-1.00); Calcium 8.3 MG/DL (8.5-10.1); Osmolality,Calculated 279.4 MOS/KG (273-304); Potassium 4.8 MMOL/L (3.5-5.1); Total Protein 6.8 G/DL (6.4-8.2)
[2022-04-14] MEDS: VANCOMYCIN INJ 1,000 MG in SODIUM CHLORIDE 0.9% 250 ML IV SCH (09:06)
[2022-04-14] MEDS: FOLIC ACID 1 MG TABLET PO SCH (09:09)
[2022-04-14] MEDS: amLODIPine 5 MG TABLET PO SCH (09:09)
[2022-04-14] MEDS: CETIRIZINE 10 MG TABLET PO SCH (09:09)
[2022-04-14] MEDS: MAGNESIUM OXIDE 400 MG TABLET PO SCH (09:09)
[2022-04-14] MEDS: SPIRONOLACTONE 25 MG TABLET PO SCH (09:09)
[2022-04-14] MEDS: PANTOPRAZOLE 40 MG TABLET PO SCH (09:09)
[2022-04-14] MEDS: THIAMINE 100 MG TABLET PO SCH (09:09)
[2022-04-14] MEDS: POTASSIUM CHLORIDE 20 MEQ TABLET PO SCH (09:09)
[2022-04-15] MEDS: MEROPENEM 500 MG in SODIUM CHLORIDE 0.9% 100 ML IV SCH ×2 (01:48→08:49)
[2022-04-15] MEDS: VANCOMYCIN INJ 1,000 MG in SODIUM CHLORIDE 0.9% 250 ML IV SCH (03:30)
[2022-04-15 04:51] LABS: Basophils # 0.3 10*3/uL (0.0-0.2); Basophils % 1.8 % (0.0-0.8); Eosinophils # 2.7 10*3/uL (0.0-0.87); Eosinophils % 19.4 % (0.00-10.9); Hematocrit 27.3 VOL% (35.7-47.0); Hemoglobin 9.5 GM/DL (12.0-16.0); Immature Granulocytes % 0.9 %; Immature Granulocytes Absolute 0.12 #; Lymphocytes # 3.7 10*3/uL (1.4-4.0); Lymphocytes % 27.3 % (21.3-54.2); Mean Corpuscular HGB Conc 34.8 GM/DL (32-36); Mean Corpuscular Volume 84.5 FL (87-102); Monocytes # 2.4 10*3/uL (0.11-0.8); Monocytes % 17.4 % (1.7-12.7); Neutrophils % 33.2 % (38.7-73.9); Platelet Count 85 T/CUMM (130-400); Red Blood Count 3.23 MC/CUMM (3.8-5.5); Red Cell Distribution Width 17.7 % (9.3-17.3); White Blood Count 13.7 T/CUMM (4-12)
[2022-04-15 05:16] LABS: Albumin 1.7 G/DL (3.4-5.0); Bilirubin,Total 4.1 MG/DL (0.20-1.00); Calcium 8.6 MG/DL (8.5-10.1); Osmolality,Calculated 278.4 MOS/KG (273-304); Potassium 5.1 MMOL/L (3.5-5.1); Total Protein 7.5 G/DL (6.4-8.2)
[2022-04-15 05:16] LABS: Eosinophils 28 % (0-10); Hypochromia Slight; Lymphocytes 15 % (20-55); Macrocytosis Slight; Platelet Estimate Decreased; Target Cells Few; Total Cells Counted 100
[2022-04-15] MEDS: MAGNESIUM OXIDE 400 MG TABLET PO SCH (08:47)
[2022-04-15] MEDS: THIAMINE 100 MG TABLET PO SCH (08:48)
[2022-04-15] MEDS: FOLIC ACID 1 MG TABLET PO SCH (08:48)
[2022-04-15] MEDS: PANTOPRAZOLE 40 MG TABLET PO SCH (08:48)
[2022-04-15] MEDS: CETIRIZINE 10 MG TABLET PO SCH (08:48)
[2022-04-15] MEDS: SPIRONOLACTONE 25 MG TABLET PO SCH (08:48)
[2022-04-15] MEDS: amLODIPine 5 MG TABLET PO SCH (08:49)
[2022-04-15] MEDS: POTASSIUM CHLORIDE 20 MEQ TABLET PO SCH (10:42)
[2022-04-15 11:44] VITALS: BP 133/59
[2022-04-15] MEDS ORDERED: traZODone 50 MG TABLET PO SCH (17:00)
[2022-04-15 21:21] LABS: M. Tuberculosis PCR Result Negative (Negative); M. Tuberculosis PCR Source PLEURAL FLUID
== END 2022-04-15 15:31 | disposition home health service (06) | DRG 193 ==
LOC: N.ED 09:51 → SUATTDRO 12:54 → N.EDINP 12:54 → N.5E 14:06
PROVIDERS: ADMIT Family Medicine; ATTEND Family Medicine

== ENCOUNTER 2022-04-21 | Observation (INO) ==
[2022-04-21 01:19] LABS: Basophils # 0.1 10*3/uL (0.0-0.2); Eosinophils # 0.5 10*3/uL (0.0-0.87); Eosinophils % 3.3 % (0.00-10.9); Hematocrit 23.3 VOL% (35.7-47.0); Hemoglobin 7.8 GM/DL (12.0-16.0); Immature Granulocytes % 0.7 %; Lymphocytes # 2.2 10*3/uL (1.4-4.0); Lymphocytes % 15.9 % (21.3-54.2); Mean Corpuscular HGB Conc 33.5 GM/DL (32-36); Mean Corpuscular Volume 86.3 FL (87-102); Mean Platelet Volume 11.2 FL (9.6-12.0); Monocytes # 1.5 10*3/uL (0.11-0.8); Neutrophils % 68.1 % (38.7-73.9); Platelet Count 110 T/CUMM (130-400); Red Cell Distribution Width 19.9 % (9.3-17.3); White Blood Count 13.6 T/CUMM (4-12)
[2022-04-21 01:27] LABS: INR 1.4; PT Patient Result 14.7 SECS (10.1-12.1)
[2022-04-21 01:37] LABS: Alanine Aminotransferase 33 U/L (13-56); Albumin 2.1 G/DL (3.4-5.0); Alkaline Phosphatase 158 U/L (45-117); Aspartate Amino Transferase 119 U/L (0-37); Blood Urea Nitrogen 9 MG/DL (7-18); Calcium 8.7 MG/DL (8.5-10.1); Carbon Dioxide 25 MMOL/L (21-32); Chloride 112 MMOL/L (98-107); Glucose 115 MG/DL (74-106); Osmolality,Calculated 285.8 MOS/KG (273-304); Potassium 3.9 MMOL/L (3.5-5.1); Sodium 144 MMOL/L (136-145); Total Protein 8.7 G/DL (6.4-8.2)
[2022-04-21 01:45] LABS: Bacteria,Urine Occasional /HPF (Few); Bilirubin,Urine Negative (Negative); Blood, Urine Moderate mg/dL (Negative); Glucose,Urine (UA) Negative (Negative); Ketones,Urine Negative (Negative); Mucus,Urine Occasional /LPF (Occasional); Nitrite,Urine Negative (Negative); Protein,Urine Negative (Negative); RBC,Urine 23 /HPF (0-4); Squamous Epithelial Cell,Urine Occasional /HPF (0-10); Urine Appearance Clear (Clear); Urine Color Yellow (Yellow)
[2022-04-21] MEDS ORDERED: LACTULOSE 20 GM/30 ML UDCUP PO STA (01:54)
[2022-04-21] MEDS ORDERED: ERTAPENEM 1,000 MG in SODIUM CHLORIDE 0.9% 100 ML IV ONE (01:57)
[2022-04-21] MEDS ORDERED: hydrALAZINE 20 MG/1 ML VIAL IV PRN (02:57)
[2022-04-21] MEDS ORDERED: ONDANSETRON 4 MG/2 ML VIAL IV PRN (02:57)
[2022-04-21] MEDS ORDERED: MORPHINE 2 MG/1 ML SYRINGE IV PRN (02:57)
[2022-04-21 03:12] LABS: Target Cells Slight
[2022-04-21 03:13] LABS: Hypochromia Slight
[2022-04-21 08:41] LABS: % Iron Saturation 56.7 % (18-50); Ferritin 1529.8 ng/mL (8-252)
[2022-04-21] MEDS ORDERED: LACTULOSE 20 GM/30 ML UDCUP PO SCH (09:00)
[2022-04-21] MEDS: PANTOPRAZOLE 40 MG TABLET PO SCH (09:15)
[2022-04-21] MEDS: LACTULOSE 20 GM/30 ML UDCUP PO SCH ×2 (16:25→21:14)
[2022-04-21] MEDS: FUROSEMIDE 20 MG TABLET PO SCH (16:25)
[2022-04-21] MEDS ORDERED: traZODone 50 MG TABLET PO SCH (19:00)
[2022-04-21] MEDS ORDERED: LORazepam 2 MG/1 ML VIAL IV PRN (19:48)
[2022-04-22] MEDS ORDERED: ERTAPENEM 1,000 MG in SODIUM CHLORIDE 0.9% 100 ML IV SCH (04:00)
[2022-04-22 05:53] LABS: Basophils # 0.1 10*3/uL (0.0-0.2); Eosinophils # 0.7 10*3/uL (0.0-0.87); Eosinophils % 10.5 % (0.00-10.9); Hematocrit 21.8 VOL% (35.7-47.0); Hemoglobin 7.5 GM/DL (12.0-16.0); Immature Granulocytes % 0.8 %; Immature Granulocytes Absolute 0.05 #; Lymphocytes # 2.9 10*3/uL (1.4-4.0); Lymphocytes % 44.5 % (21.3-54.2); Mean Corpuscular HGB Conc 34.4 GM/DL (32-36); Mean Corpuscular Volume 85.2 FL (87-102); Monocytes # 1.2 10*3/uL (0.11-0.8); Monocytes % 18.4 % (1.7-12.7); Neutrophils % 23.8 % (38.7-73.9); Platelet Count 52 T/CUMM (130-400); Red Blood Count 2.56 MC/CUMM (3.8-5.5); White Blood Count 6.5 T/CUMM (4-12)
[2022-04-22 06:00] LABS: Albumin 1.5 G/DL (3.4-5.0); Bilirubin,Total 1.8 MG/DL (0.20-1.00); Calcium 8.1 MG/DL (8.5-10.1); Osmolality,Calculated 282.8 MOS/KG (273-304); Total Protein 7.2 G/DL (6.4-8.2)
[2022-04-22 06:22] LABS: Eosinophils 9 % (0-10); Lymphocytes 48 % (20-55); Total Cells Counted 100
[2022-04-22 06:23] LABS: Target Cells Few
[2022-04-22 06:26] LABS: Anisocytosis 1+; Microcytosis 1+; Tear Drop Cells Slight
[2022-04-22 06:27] LABS: Hypochromia Slight
[2022-04-22] MEDS ORDERED: POTASSIUM CHLORIDE 20 MEQ TABLET PO SCH (09:00)
[2022-04-22] MEDS ORDERED: MAGNESIUM OXIDE 400 MG TABLET PO SCH (09:00)
[2022-04-22] MEDS ORDERED: CETIRIZINE 10 MG TABLET PO SCH (09:00)
[2022-04-22] MEDS ORDERED: SPIRONOLACTONE 25 MG TABLET PO SCH (09:00)
[2022-04-22] MEDS ORDERED: FOLIC ACID 1 MG TABLET PO SCH (09:00)
[2022-04-22] MEDS ORDERED: amLODIPine 5 MG TABLET PO SCH (09:00)
[2022-04-22] MEDS: FUROSEMIDE 20 MG TABLET PO SCH ×2 (09:59→15:45)
[2022-04-22] MEDS: LACTULOSE 20 GM/30 ML UDCUP PO SCH ×2 (09:59→15:45)
[2022-04-22] MEDS: PANTOPRAZOLE 40 MG TABLET PO SCH (10:00)
[2022-04-22 16:51] VITALS: BP 112/62
== END 2022-04-22 18:17 | disposition home or self-care (01) ==
LOC: EDUNIT# → EDBD → N.ED → N.EDINP → SUATTDRO 02:57 → N.2W 12:09
PROVIDERS: ADMIT Internal Medicine; ATTEND Emergency Medicine